=== PATIENT | female | born 1995 | race African-American/Black ===

== ENCOUNTER 2016-06-08 12:55 | Emergency (ER) | payer OTHER ==
[~2016-06-08] VITALS: Ht 154.9 cm; Wt 46.0 kg
[~2016-06-08 12:55] MED LIST: BCPILLS PO; METR-163 PO; OSEL75CA12 PO; VNTHFA/IN INH; ZNTT/150 PO
[2016-06-08 13:00] VITALS: TEMP 36.7; Ht 154.9 cm; Wt 46.0 kg
[2016-06-08] MEDS ORDERED: IBUPROFEN 600 MG TAB PO STA (13:26)
[2016-06-08] MEDS ORDERED: ACETAMINOPHEN 325 MG TAB PO STA (13:26)
[2016-06-08] MEDS ORDERED: SODIUM CHLORIDE 0.9% 1000ML 1,000 ML IV STA (13:26)
[2016-06-08 14:29] LABS: BASO % 0.6 %; BASO ABS # 0.03 K/uL (0-0.2); COMPLETE YES; EOS % 0.8 %; IG% 0.2 %; LYMPH % 40.8 %; LYMPH ABS # 2.12 K/uL (1.2-3.4); MEAN CELL VOLUME 89.2 fL (80-100); MEAN CORPUSCULAR HGB CONC 35.9 g/dl (32-36); MEAN PLATELET VOLUME 11.1 fL (7.4-10.4); MONO % 8.7 %; NEUT % 48.9 %; PLATELET COUNT 188 K/uL (130-400); RED BLOOD COUNT 4.15 M/uL (4.2-5.4); WHITE BLOOD COUNT 5.19 K/uL (4.8-10.8)
[2016-06-08 14:42] LABS: BUN/CREATININE RATIO 8.6 (10-20); CALCIUM 8.7 mg/dl (8.5-10.1); CREATININE 1.1 mg/dl (0.60-1.20); POTASSIUM 3.6 mmol/L (3.5-5.1)
--- NOTE | 2016-06-08 14:57 | DIAGNOSTIC IMAGING REPORT ---
CHEST 2 VIEWS ROUTINE CLINICAL HISTORY: Nausea and chills. Evaluate for pneumonia. COMPARISON STUDY: Chest radiograph January 31, 2016. FINDINGS: Lung volumes are normal. There is no pneumothorax or pleural effusion. Cardiac size is normal. Mediastinal contours are normal. There is no evidence of pulmonary edema. IMPRESSION: No acute cardiopulmonary findings. Electronically signed by: Pablito Mcfarlane M.D. 06/08/2016 2:55 PM Dictated Date/Time: 06/08/2016 2:54 PM
[2016-06-08 15:25] LABS: LYME DISEASE AB IGG NEG (NEG); LYME DISEASE AB IGM NEG (NEG)
[2016-06-08] MEDS ORDERED: ONDANSETRON INJ 2 MG/ML 2 ML VIAL IV STA (16:02)
[2016-06-08 16:09] LABS: URINE APPEARANCE CLEAR (CLEAR); URINE BILIRUBIN NEG (NEG); URINE COLOR YELLOW; URINE NITRITE NEG (NEG); URINE SPECIFIC GRAVITY 1.022 (1.000-1.030); UROBILINOGEN NEG (NEG)
[2016-06-08 16:22] LABS: MANUAL MICROSCOPIC REQUIRED? NO; REVIEW REQ? NO
[2016-06-08] MEDS ORDERED: ONDA4TAB10 SL (16:38)
[2016-06-08 16:40] VITALS: BP 125/77; PULSE 67; O2SAT 99
--- NOTE | 2016-06-08 18:20 | EMERGENCY ROOM VISIT NOTE ---
History Report prepared by Sunshine: Salvador Atwood Under the Supervision of: Dr. Noble Gonzalez M.D. First contact with patient: 13:20 Chief Complaint: ILLNESS Stated Complaint: WHOLE BODY,NAUSEA,CHILLS,HEADACHE History of Present Illness The patient is a 21 year old female who presents to the Emergency Room with complaints of persistent body aches that began on Thursday, two days prior to arrival. The patient is also complaining of a sorethroat and a headache that onset at the same time. She states that her headache pain is localized to the back of her head. She has been coughing lately, which is producing a brown mucous. The patient expressed that she feels the need to vomit, but has not up until this time and has not had any fevers. The patient does have a history of asthma and feels as though she is wheezing. She has not taken any medications for her symptoms. Source of History: patient Onset: 2 days [employer] Position: other (Global) Quality: ache Timing: other (Persistent) Associated Symptoms: + cough, No fevers, No vomiting Review of Systems See HPI for pertinent positives & negatives. A total of 10 systems reviewed and were otherwise negative. Past Medical & Surgical Medical Problems: (1) Asthma Family History Cancer Social History Smoking Status: Never Smoker Alcohol Use: none Marital Status: single Housing Status: lives with roommate Occupation Status: employed, [employer] Current/Historical Medications Scheduled Albuterol Hfa (Ventolin Hfa), 2-4 PUFFS INH Q6H Control Pills ( Control Pills), 1 TAB PO DAILY Ondasetron Odt (Zofran Odt), 4 MG SL Q6H Allergies Coded Allergies: No Known Allergies (Unverified , 06/08/16) Physical Exam Vital Signs Date Time Temp Pulse Resp B/P Pulse Ox O2 Delivery O2 Flow Rate FiO2 06/08/16 16:40 67 15 125/77 99 Room Air 06/08/16 15:04 64 16 91/57 100 Room Air 06/08/16 13:00 36.7 90 18 135/61 95 Room Air Physical Exam Constitutional: Vital signs reviewed. Eyes: Pupils are equal round reactive to light. Conjunctiva are noninjected. ENT: There is minimal erythema to posterior oropharynx without exudate. Mucous membranes are moist. Neck supple without meningeal signs. Respiratory: Clear to auscultation bilaterally. Breath sounds are equal bilaterally. No wheezing. Cardiovascular: Regular rate and rhythm. No rubs or gallops. GI: No organomegaly. Soft, nondistended and nontender. Bowel sounds are present. Musculoskeletal: No peripheral edema. No lower extremity tenderness. Integumentary: No cyanosis. Neurological: The patient is awake and alert. No focal deficits. Psychiatric: Normal affect. Medical Decision & Procedures ER Provider Diagnostic Interpretation: Radiology results as stated below per my review and the radiologist's interpretation: CHEST 2 VIEWS ROUTINE CLINICAL HISTORY: Nausea and chills. Evaluate for pneumonia. COMPARISON STUDY: Chest radiograph January 31, 2016. FINDINGS: Lung volumes are normal. There is no pneumothorax or pleural effusion. Cardiac size is normal. Mediastinal contours are normal. There is no evidence of pulmonary edema. IMPRESSION: No acute cardiopulmonary findings. Electronically signed by: Pablito Mcfarlane M.D. 06/08/2016 2:55 PM Dictated Date/Time: 06/08/2016 2:54 PM Laboratory Results 06/08/16 14:05 Red Blood Count 4.15, Mean Corpuscular Volume 89.2, Mean Corpuscular Hemoglobin 32.0, Mean Corpuscular Hemoglobin Concent 35.9, Mean Platelet Volume 11.1, Neutrophils (%) (Auto) 48.9, Lymphocytes (%) (Auto) 40.8, Monocytes (%) (Auto) 8.7, Eosinophils (%) (Auto) 0.8, Basophils (%) (Auto) 0.6, Neutrophils # (Auto) 2.54, Lymphocytes # (Auto) 2.12, Monocytes # (Auto) 0.45, Eosinophils # (Auto) 0.04, Basophils # (Auto) 0.03 06/08/16 14:05 Test 06/08/16 13:45 06/08/16 14:05 06/08/16 15:45 Influenza Type A Antigen Neg for Influ A (NEG) Influenza Type B Antigen Neg for Influ B (NEG) White Blood Count 5.19 K/uL (4.8-10.8) Red Blood Count 4.15 M/uL (4.2-5.4) Hemoglobin 13.3 g/dL (12.0-16.0) Hematocrit 37.0 % (37-47) Mean Corpuscular Volume 89.2 fL (80-100) Mean Corpuscular Hemoglobin 32.0 pg (25-34) Mean Corpuscular Hemoglobin Concent 35.9 g/dl (32-36) Platelet Count 188 K/uL (130-400) Mean Platelet Volume 11.1 fL (7.4-10.4) Neutrophils (%) (Auto) 48.9 % Lymphocytes (%) (Auto) 40.8 % Monocytes (%) (Auto) 8.7 % Eosinophils (%) (Auto) 0.8 % Basophils (%) (Auto) 0.6 % Neutrophils # (Auto) 2.54 K/uL (1.4-6.5) Lymphocytes # (Auto) 2.12 K/uL (1.2-3.4) Monocytes # (Auto) 0.45 K/uL (0.11-0.59) Eosinophils # (Auto) 0.04 K/uL (0-0.5) Basophils # (Auto) 0.03 K/uL (0-0.2) RDW Standard Deviation 39.0 fL (36.4-46.3) RDW Coefficient of Variation 12.0 % (11.5-14.5) Immature Granulocyte % (Auto) 0.2 % Immature Granulocyte # (Auto) 0.01 K/uL (0.00-0.02) Anion Gap 12.0 mmol/L (3-11) Est Creatinine Clear Calc Drug Dose 58.3 ml/min Estimated GFR () 82.5 Estimated GFR (Non- 71.2 BUN/Creatinine Ratio 8.6 (10-20) Calcium Level 8.7 mg/dl (8.5-10.1) Total Bilirubin 0.5 mg/dl (0.2-1) Direct Bilirubin 0.1 mg/dl (0-0.2) Aspartate Amino Transf (AST/SGOT) 18 U/L (15-37) Alanine Aminotransferase (ALT/SGPT) 22 U/L (12-78) Alkaline Phosphatase 46 U/L (45-117) Total Protein 7.5 gm/dl (6.4-8.2) Albumin 3.8 gm/dl (3.4-5.0) Lyme Disease IgG Antibody NEG (NEG) Lyme Disease IgM Antibody NEG (NEG) Monoscreen NEG (NEG) Urine Color YELLOW Urine Appearance CLEAR (CLEAR) Urine pH 5.0 (4.5-7.5) Urine Specific [place] 1.022 (1.000-1.030) Urine Protein NEG (NEG) Urine Glucose (UA) NEG (NEG) Urine Ketones 3+ (NEG) Urine Occult Blood NEG (NEG) Urine Nitrite NEG (NEG) Urine Bilirubin NEG (NEG) Urine Urobilinogen NEG (NEG) Urine Leukocyte Esterase NEG (NEG) Urine Test NEG (NEG) Laboratory results as reviewed by me. Medications Administered Medications (Trade) Dose Ordered Sig/Alonzo Route Start Time Stop Time Status Last Admin Dose Admin Sodium Chloride (Nss 1000ml) 1,000 ml @ 999 mls/hr Q1H1M STAT IV 06/08/16 13:26 06/08/16 14:26 DC 06/08/16 14:20 999 MLS/HR Acetaminophen (Tylenol Tab) 650 mg NOW STAT PO 06/08/16 13:26 06/08/16 13:30 DC 06/08/16 14:25 650 MG Ibuprofen (Motrin Tab) 600 mg NOW STAT PO 06/08/16 13:26 06/08/16 13:30 DC 06/08/16 14:21 600 MG Ondansetron HCl (Zofran Inj) 4 mg NOW STAT IV 06/08/16 16:02 06/08/16 16:03 DC 06/08/16 16:17 4 MG ED Course 1320: The patient was evaluated in room C6. A complete history and physical exam was performed. 1326: Ordered Motrin 600 mg PO, Tylenol 650 mg PO, Sodium Chloride 1000 mL @ 999 mL/hr IV. 1514: I checked on the patient at this time, she was in the bathroom giving urine samples. 1601: I checked on the patient at this time, she is feeling better. She still has a mild headache but her achiness is significantly improved. I discussed the change of meningitis with her which we decided was low. She declined a lumbar puncture. She is nauseated at this time. 1602: Ordered Zofran 4 mg IV. 1636: Upon reevaluation, the patient appeared to have improvement of her symptoms. I discussed tonight's findings with her. She verbalized agreement of the treatment plan. The patient was discharged home. Medical Decision This is a 21-year-old female who presents with flulike symptoms. Differential diagnosis includes influenza, mononucleosis, viral syndrome, pneumonia, meningitis. I did perform a limited focused review of portions of the patient' s old chart on the electronic medical record. The patient was diagnosed with Influenza A in January of last year. I did evaluate the patient as noted above. The patient is presenting with flulike symptoms. She does have a headache but does not have any meningeal signs on exam. She has also been afebrile. IV access was established. I did treat the patient with normal saline IV. She was also given Tylenol and Motrin. Urinalysis did not show any evidence of infection. Urine test is negative. I did order and personally review the patient's chest x-ray as described above. There is no evidence of pneumonia. Rapid flu testing was negative. I did order and review the patient's blood work as noted in the electronic medical record. Her white blood cell count is not elevated. Lyme and Monospot testing are both negative. I did reassess the patient. She is feeling better. She does have a headache but she describes it as mild. I did discuss with her the test results. I did explain that I felt she was low risk for meningitis and she agreed and declined lumbar puncture. She was given Zofran IV for nausea. She will follow up with [facility]. She was discharged with a prescription for Zofran. She was advised to return immediately should she develop high fevers, rash or worsening headache or neck pain. She was discharged in good condition. Impression Primary Impression: Flu-like symptoms Scribe Attestation The scribe's documentation has been prepared under my direct and personally reviewed by me in its entirety. I confirm that the note above accurately reflects all work, treatment, procedures, and medical decision making performed by me. Departure Information Dispostion Home / Self-Care Prescriptions Ondasetron Odt (ZOFRAN ODT) 4 Mg Tab 4 MG SL Q6H for Nausea, #10 TAB Prov: Noble Gonzalez M.D. 06/08/16 Referrals Richard Olsen M.D. (PCP) Forms HOME CARE DOCUMENTATION FORM, IMPORTANT VISIT INFORMATION, WORK / SCHOOL INSTRUCTIONS Patient Instructions My [facility] Additional Instructions You have been examined and treated today on an emergency basis only. This is not a substitute for, or an effort to provide, complete comprehensive medical care. It is impossible to recognize and treat all injuries or illnesses in a single emergency department visit. It is therefore important that you follow up closely with [facility]. Call as soon as possible for an appointment. Return for worsening symptoms or if you develop fever, vomiting, rash or any other concerning symptoms.
== END 2016-06-08 16:51 | disposition home or self-care (01) ==
LOC: C.EDB 12:57 → C.EDC 16:51
DX: M79.1 Myalgia (principal); R11.0 Nausea; R51 Headache; R68.83 Chills (without fever)